=== PATIENT | female | born 1995 | race Caucasian/White ===

== ENCOUNTER 2021-07-27 13:57 | Emergency (ER) | payer BC ==
[2021-07-27] MEDS ORDERED: Sodium Chloride 0.9% 500 ML IV ONE (14:29)
[2021-07-27] MEDS ORDERED: HYDROmorphone 0.5 MG/0.5 ML Syringe IVPUSH ONE ×2 (14:29→16:46)
[2021-07-27] MEDS ORDERED: Ondansetron 4 MG/2 ML SDV IVPUSH ONE (14:29)
[2021-07-27] MEDS ORDERED: Sodium Chloride 0.9% 10 ML Syringe FLUSH PRN (14:29)
== END 2021-07-27 18:24 | disposition home or self-care (01) ==
LOC: JD.ED 13:57
DX: R10.2 Pelvic and perineal pain (principal); E03.9 Hypothyroidism, unspecified; Z79.899 Other long term (current) drug therapy
CPT/HCPCS: 36415; 76830; 80053; 81001; 81025; 85007; 85027; 86140; 87210; 87808; 96374; 96375; 96376; 99284; J1170; J2405; J7030